=== PATIENT | female | born 1965 | race African-American/Black ===

== ENCOUNTER 2023-12-12 19:26 | Emergency (ER) | payer MEDICAID ==
[~2023-12-12] VITALS: Ht 167.6 cm; Wt 72.6 kg
[2023-12-12] MEDS ORDERED: ONDANSETRON ODT 4 MG TAB.RAPDIS ONE (20:11)
[2023-12-12] MEDS ORDERED: IBUPROFEN 400 MG TABLET ONE (20:11)
[2023-12-12] MEDS ORDERED: AMOXICILLIN-CLAVUL 875-125MG TABLET ONE (20:12)
[2023-12-12] MEDS ORDERED: ACETAMINOPHEN/CODEINE 120-12 MG PER 5 ML LIQUID UDC ONE (20:13)
[2023-12-12] MEDS: AMOXICILLIN-CLAVUL 875-125MG TABLET PO ONE (20:19)
[2023-12-12] MEDS: ONDANSETRON ODT 4 MG TAB.RAPDIS SL ONE (20:19)
[2023-12-12] MEDS: ACETAMINOPHEN/CODEINE 120-12 MG PER 5 ML LIQUID UDC PO ONE (20:20)
[2023-12-12] MEDS: IBUPROFEN 400 MG TABLET PO ONE (20:20)
[2023-12-12 20:52] LABS: BASOPHILS # (AUTO) 0.1 K/UL (0.0-0.2); BASOPHILS % (AUTO) 0.8 % (0.0-2.0); DIFFERENTIAL COMMENT 1; EOSINOPHILS # (AUTO) 0.3 K/uL (0.0-0.7); EOSINOPHILS % (AUTO) 2.6 % (0.0-7.0); HEMATOCRIT 39.9 % (31.2-41.9); HEMOGLOBIN 13.4 g/dL (10.9-14.3); LYMPHOCYTES % (AUTO) 17.3 % (20.5-51.5); MEAN CORPUSCULAR HEMOGLOBIN 28.6 uug (24.7-32.8); MEAN CORPUSCULAR HGB CONC 34 g/dL (32.3-35.6); MEAN CORPUSCULAR VOLUME 85.1 fL (75.5-95.3); MONOCYTES # (AUTO) 0.9 K/uL (0.1-1.30); MONOCYTES % (AUTO) 7.5 % (0.0-11.0); NEUTROPHILS # (AUTO) 8.4 K/uL (1.8-8.9); NEUTROPHILS % (AUTO) 71.8 % (38.5-71.5); PLATELET COUNT (AUTO) 193 K/uL (179-408); RED BLOOD CELL COUNT(AUTO) 4.69 MIL/uL (3.63-4.92); RED CELL DISTRIBUTION WIDTH 13.6 % (12.3-17.7); WHITE BLOOD COUNT (AUTO) 11.7 K/uL (3.8-11.8)
[2023-12-12 20:58] LABS: CALCIUM 8.8 mg/dL (8.5-10.1); CREATININE 0.9 mg/dL (0.6-1.3); POTASSIUM 3.9 mmol/L (3.5-5.1)
[2023-12-12] MEDS ORDERED: METOCLOPRAMIDE HCL 10 MG/2 ML VIAL ONE (21:18)
[2023-12-12] MEDS ORDERED: MORPHINE SULFATE 4 MG/1 ML DISP.SYRIN ONE (21:18)
[2023-12-12] MEDS: METOCLOPRAMIDE HCL 10 MG/2 ML VIAL IV ONE (21:27)
[2023-12-12] MEDS: MORPHINE SULFATE 4 MG/1 ML DISP.SYRIN IV ONE (21:27)
[2023-12-12] MEDS ORDERED: HYDR-3980 PO (22:35)
[2023-12-12] MEDS ORDERED: AMOX-430 PO (22:35)
[2023-12-12] MEDS ORDERED: CIPR10DR5 RIGHT EAR (22:35)
[2023-12-13 00:08] VITALS: BP 124/80; TEMP 98; O2SAT 99
== END 2023-12-13 00:08 | disposition home or self-care (01) ==
LOC: ER 19:27
DX: J06.9 Acute upper respiratory infection, unspecified (principal); H66.91 Otitis media, unspecified, right ear; L60.0 Ingrowing nail; Z79.899 Other long term (current) drug therapy
CPT/HCPCS: 99284; 96374; 71045; 96375; 80048; 85025; 86403; 87070; 36415; J2765; J2270; A4606; A4663; Q0162